=== PATIENT | male | born 1950 | race Caucasian/White ===

== ENCOUNTER 2018-01-17 11:25 | Inpatient (IN) ==
[2018-01-17] MEDS ORDERED: VANCOMYCIN INJ 1,250 MG in SODIUM CHLORIDE 0.9% 250 ML IV STA (12:49)
[2018-01-17 13:43] LABS: Basophils % 0.7 % (0.0-0.8); Eosinophils # 0.5 10*3/uL (0.0-0.87); Eosinophils % 12.1 % (0.00-10.9); Hematocrit 43.5 VOL% (42.0-52.0); Hemoglobin 14.5 GM/DL (14.0-18.0); Immature Granulocytes % 0.2 %; Immature Granulocytes Absolute 0.01 #; Lymphocytes # 1.3 10*3/uL (1.4-4.0); Lymphocytes % 29.7 % (21.2-54.2); Mean Corpuscular HGB Conc 33.3 GM/DL (32-36); Mean Corpuscular Hemoglobin 32 PG (27-34); Mean Corpuscular Volume 96.7 FL (87-102); Mean Platelet Volume 9.2 FL (9.6-12.0); Monocytes # 0.5 10*3/uL (0.11-0.8); Monocytes % 11.6 % (1.7-12.7); Neutrophils # 1.9 10*3/uL (1.4-7.4); Neutrophils % 45.7 % (38.7-73.9); Platelet Count 172 T/CUMM (130-400); Red Cell Distribution Width 15.8 % (9.3-17.3); White Blood Count 4.2 T/CUMM (4-12)
[2018-01-17] MEDS ORDERED: ONDANSETRON 4 MG/2 ML VIAL IV PRN (13:54)
[2018-01-17] MEDS ORDERED: diphenhydrAMINE CAP 25 MG CAPSULE PO PRN (13:54)
[2018-01-17] MEDS ORDERED: DOCUSATE SODIUM 100 MG CAPSULE PO PRN (13:54)
[2018-01-17] MEDS ORDERED: ACETAMINOPHEN 325 MG TABLET PO PRN (13:54)
[2018-01-17] MEDS ORDERED: hydrALAZINE 10 MG TABLET PO PRN (13:59)
[2018-01-17 14:02] LABS: Albumin 4.2 G/DL (3.4-5.0); Bilirubin,Total 0.7 MG/DL (0.2-1.0); Calcium 8.8 MG/DL (8.5-10.1); Osmolality,Calculated 277.5 MOS/KG (273-304); Potassium 3.7 MMOL/L (3.5-5.1); Total Protein 9.5 G/DL (6.4-8.3)
[2018-01-17 14:44] LABS: Eosinophils 17 % (0-10); Lymphocytes 20 % (20-55); Segmented Neutrophils 46 % (50-85); Total Cells Counted 100
[2018-01-17 14:47] LABS: Platelet Estimate Adequate
[2018-01-17] MEDS: CEFTAROLINE 600 MG in SODIUM CHLORIDE 0.9% 100 ML IV SCH (17:07)
[2018-01-17 17:08] LABS: Apearance,Urine Slightly Hazy (Clear); Bilirubin,Urine Negative (Negative); Blood, Urine Negative (Negative); Glucose,Urine (UA) Negative (Negative); Ketones,Urine Negative (Negative); Mucus,Urine Occasional /LPF (Occasional); Nitrite,Urine Negative (Negative); Protein,Urine Negative; RBC,Urine 10 /HPF (0-4); Squamous Epithelial Cell,Urine Occasional /HPF (0-10); Urine Color Yellow (Yellow); Urine Specific Gravity 1.016 (1.001-1.035); Urine Urobilinogen < 2.0 EU/DL (0.2-1.0); WBC,Urine 42 /HPF (0-6)
[2018-01-17] MEDS: PANTOPRAZOLE 40 MG TABLET PO SCH (17:08)
[2018-01-17] MEDS: OMEGA 3 ACID ETHYL ESTERS 1 GM CAPSULE PO SCH (17:08)
[2018-01-17] MEDS: ENOXAPARIN 40 MG/0.4 ML SYRINGE SUBCUT SCH (21:44)
[2018-01-18] MEDS: CEFTAROLINE 600 MG in SODIUM CHLORIDE 0.9% 100 ML IV SCH (05:55)
[2018-01-18 06:02] LABS: Eosinophils # 0.5 10*3/uL (0.0-0.87); Eosinophils % 13.2 % (0.00-10.9); Hematocrit 38.5 VOL% (42.0-52.0); Hemoglobin 12.6 GM/DL (14.0-18.0); Lymphocytes # 1.3 10*3/uL (1.4-4.0); Lymphocytes % 34.5 % (21.2-54.2); Mean Corpuscular HGB Conc 32.7 GM/DL (32-36); Mean Corpuscular Hemoglobin 31 PG (27-34); Mean Platelet Volume 9.5 FL (9.6-12.0); Monocytes # 0.6 10*3/uL (0.11-0.8); Neutrophils # 1.4 10*3/uL (1.4-7.4); Neutrophils % 36.3 % (38.7-73.9); Platelet Count 145 T/CUMM (130-400); Red Blood Count 4.01 MC/CUMM (3.8-5.5); Red Cell Distribution Width 15.5 % (9.3-17.3); White Blood Count 3.9 T/CUMM (4-12)
[2018-01-18 06:32] LABS: Calcium 8.3 MG/DL (8.5-10.1); Osmolality,Calculated 288.7 MOS/KG (273-304); Potassium 3.9 MMOL/L (3.5-5.1); Risk Ratio 4.79; Thyroid Stimulating Hormone 1.63 uIU/ml (0.358-3.74); VLDL CHOLESTEROL 35.6 MG/DL
[2018-01-18 06:40] LABS: Eosinophils 11 % (0-10); Hypochromasia 1+; Lymphocytes 29 % (20-55); Ovalocytes Slight; Platelet Estimate Normal; Segmented Neutrophils 52 % (50-85); Total Cells Counted 100
[2018-01-18] MEDS: PANTOPRAZOLE 40 MG TABLET PO SCH (09:18)
[2018-01-18] MEDS: OMEGA 3 ACID ETHYL ESTERS 1 GM CAPSULE PO SCH (09:18)
[2018-01-18] MEDS: ceFAZolin 1,000 MG in SYRINGE 1 EACH IV SCH (18:44)
[2018-01-18] MEDS ORDERED: ROSUVASTATIN 10 MG TABLET PO SCH (21:00)
[2018-01-18] MEDS: ENOXAPARIN 40 MG/0.4 ML SYRINGE SUBCUT SCH (21:16)
[2018-01-19] MEDS: ceFAZolin 1,000 MG in SYRINGE 1 EACH IV SCH ×2 (01:48→09:44)
[2018-01-19 06:15] LABS: Calcium 8.5 MG/DL (8.5-10.1); Osmolality,Calculated 286.8 MOS/KG (273-304); Potassium 3.8 MMOL/L (3.5-5.1)
[2018-01-19] MEDS: OMEGA 3 ACID ETHYL ESTERS 1 GM CAPSULE PO SCH (09:44)
[2018-01-19] MEDS: PANTOPRAZOLE 40 MG TABLET PO SCH (09:44)
[2018-01-19 11:40] VITALS: BP 160/87
== END 2018-01-19 14:55 | disposition home or self-care (01) | DRG 603 ==
LOC: N.ED 11:25 → SUATTDRO 13:54 → N.EDINP 13:54 → N.2W 15:34 → N.2E 17:36
PROVIDERS: ADMIT Internal Medicine; ATTEND Internal Medicine

== ENCOUNTER 2018-09-17 21:02 | Inpatient (IN) ==
[2018-09-17 22:58] LABS: Basophils # 0.1 10*3/uL (0.0-0.2); Basophils % 0.4 % (0.0-0.8); Hemoglobin 14.6 GM/DL (14.0-18.0); Immature Granulocytes % 3.4 %; Immature Granulocytes Absolute 0.76 #; Lymphocytes # 0.6 10*3/uL (1.4-4.0); Lymphocytes % 2.6 % (21.2-54.2); Mean Corpuscular HGB Conc 33.2 GM/DL (32-36); Mean Corpuscular Hemoglobin 32 PG (27-34); Mean Corpuscular Volume 96.9 FL (87-102); Mean Platelet Volume 9.5 FL (9.6-12.0); Monocytes # 0.7 10*3/uL (0.11-0.8); Monocytes % 2.9 % (1.7-12.7); Neutrophils # 20.2 10*3/uL (1.4-7.4); Neutrophils % 90.7 % (38.7-73.9); Platelet Count 147 T/CUMM (130-400); Red Blood Count 4.54 MC/CUMM (3.8-5.5); Red Cell Distribution Width 14.6 % (9.3-17.3); White Blood Count 22.3 T/CUMM (4-12)
[2018-09-17 23:15] LABS: Albumin 3.6 G/DL (3.4-5.0); Bilirubin,Total 1.1 MG/DL (0.2-1.0); Calcium 8.4 MG/DL (8.5-10.1); Potassium 4.3 MMOL/L (3.5-5.1); Total Protein 8.1 G/DL (6.4-8.3)
[2018-09-17 23:49] LABS: Apearance,Urine Slightly Hazy (Clear); Bacteria,Urine Occasional /HPF (Few); Bilirubin,Urine Negative (Negative); Blood, Urine Negative (Negative); Glucose,Urine (UA) Negative (Negative); Hyaline Casts,Urine 9 /LPF (0-3); Ketones,Urine Negative (Negative); Mucus,Urine Few /LPF (Occasional); Nitrite,Urine Negative (Negative); Protein,Urine Negative; RBC,Urine 9 /HPF (0-4); Renal Epithelial Cells,Urine Occasional /HPF (<1); Squamous Epithelial Cell,Urine Occasional /HPF (0-10); Transitional Epi Cells,Urine Occasional /HPF (<1); Urine Color Yellow (Yellow); Urine Specific Gravity 1.015 (1.001-1.035); Urine Urobilinogen < 2.0 EU/DL (0.2-1.0); WBC,Urine 145 /HPF (0-6)
[2018-09-18] MEDS ORDERED: cefTRIAXone 1,000 MG in SODIUM CHLORIDE 0.9% 100 ML IV STA (00:11)
[2018-09-18] MEDS ORDERED: SODIUM CHLORIDE 0.9% 1,000 ML IV STA (00:14)
[2018-09-18] MEDS ORDERED: ACETAMINOPHEN 325 MG TABLET PO PRN ×2 (01:47→02:25)
[2018-09-18] MEDS ORDERED: SODIUM CHLORIDE 0.9% 3,900 ML IV ONE (01:47)
[2018-09-18] MEDS ORDERED: ONDANSETRON 4 MG/2 ML VIAL IV PRN (01:47)
[2018-09-18 01:51] LABS: Band Neutrophils 10 % (0-10); Lymphocytes 2 % (20-55); Metamyelocytes 2 %; Platelet Estimate Adequate; Segmented Neutrophils 84 % (50-85); Total Cells Counted 100
[2018-09-18] MEDS: MEROPENEM 1,000 MG in SODIUM CHLORIDE 0.9% 100 ML IV SCH ×2 (02:15→14:43)
[2018-09-18] MEDS: ENOXAPARIN 40 MG/0.4 ML SYRINGE SUBCUT SCH (02:16)
[2018-09-18 07:15] LABS: Basophils % 0.2 % (0.0-0.8); Hematocrit 37.3 VOL% (42.0-52.0); Hemoglobin 12.7 GM/DL (14.0-18.0); Immature Granulocytes % 3.1 %; Immature Granulocytes Absolute 0.55 #; Lymphocytes # 0.8 10*3/uL (1.4-4.0); Lymphocytes % 4.3 % (21.2-54.2); Mean Corpuscular Hemoglobin 33 PG (27-34); Mean Corpuscular Volume 95.6 FL (87-102); Mean Platelet Volume 9.5 FL (9.6-12.0); Monocytes # 0.6 10*3/uL (0.11-0.8); Monocytes % 3.1 % (1.7-12.7); Neutrophils % 89.3 % (38.7-73.9); Platelet Count 114 T/CUMM (130-400); Red Cell Distribution Width 14.6 % (9.3-17.3); White Blood Count 17.9 T/CUMM (4-12)
[2018-09-18 07:33] LABS: Calcium 7.3 MG/DL (8.5-10.1); Osmolality,Calculated 282.7 MOS/KG (273-304)
[2018-09-18 07:58] LABS: Band Neutrophils 9 % (0-10); Eosinophils 1 % (0-10); Hypochromasia 1+; Lymphocytes 6 % (20-55); Platelet Estimate Decreased; Segmented Neutrophils 84 % (50-85); Total Cells Counted 100
[2018-09-18] MEDS: PANTOPRAZOLE 40 MG TABLET PO SCH (13:01)
[2018-09-18] MEDS: ASPIRIN EC 325 MG TABLET PO SCH (18:06)
[2018-09-19] MEDS: ENOXAPARIN 40 MG/0.4 ML SYRINGE SUBCUT SCH (01:09)
[2018-09-19] MEDS: MEROPENEM 1,000 MG in SODIUM CHLORIDE 0.9% 100 ML IV SCH (01:10)
[2018-09-19 05:02] LABS: Basophils % 0.2 % (0.0-0.8); Eosinophils % 0.3 % (0.00-10.9); Hematocrit 36.2 VOL% (42.0-52.0); Hemoglobin 12.1 GM/DL (14.0-18.0); Immature Granulocytes % 1.4 %; Immature Granulocytes Absolute 0.16 #; Lymphocytes # 1.1 10*3/uL (1.4-4.0); Lymphocytes % 9.5 % (21.2-54.2); Mean Corpuscular HGB Conc 33.4 GM/DL (32-36); Mean Corpuscular Hemoglobin 32 PG (27-34); Mean Corpuscular Volume 96.5 FL (87-102); Mean Platelet Volume 9.9 FL (9.6-12.0); Monocytes # 0.6 10*3/uL (0.11-0.8); Monocytes % 5.2 % (1.7-12.7); Neutrophils # 9.7 10*3/uL (1.4-7.4); Neutrophils % 83.4 % (38.7-73.9); Platelet Count 109 T/CUMM (130-400); Red Blood Count 3.75 MC/CUMM (3.8-5.5); Red Cell Distribution Width 14.6 % (9.3-17.3); White Blood Count 11.6 T/CUMM (4-12)
[2018-09-19 05:27] LABS: Calcium 7.9 MG/DL (8.5-10.1); Osmolality,Calculated 282.4 MOS/KG (273-304); Potassium 3.9 MMOL/L (3.5-5.1)
[2018-09-19 06:00] LABS: Risk Ratio 5.06; VLDL CHOLESTEROL 31.8 MG/DL
[2018-09-19] MEDS: PANTOPRAZOLE 40 MG TABLET PO SCH (08:36)
[2018-09-19] MEDS: ASPIRIN EC 325 MG TABLET PO SCH (08:37)
[2018-09-19] MEDS: cefTRIAXone 2,000 MG in SYRINGE 1 EACH IV SCH (13:29)
[2018-09-20] MEDS: ENOXAPARIN 40 MG/0.4 ML SYRINGE SUBCUT SCH (01:11)
[2018-09-20 05:17] LABS: Basophils % 0.3 % (0.0-0.8); Eosinophils # 0.1 10*3/uL (0.0-0.87); Eosinophils % 1.3 % (0.00-10.9); Hematocrit 35.1 VOL% (42.0-52.0); Hemoglobin 11.8 GM/DL (14.0-18.0); Immature Granulocytes % 0.8 %; Immature Granulocytes Absolute 0.06 #; Lymphocytes # 1.4 10*3/uL (1.4-4.0); Mean Corpuscular HGB Conc 33.6 GM/DL (32-36); Mean Corpuscular Hemoglobin 32 PG (27-34); Mean Corpuscular Volume 95.6 FL (87-102); Mean Platelet Volume 10.6 FL (9.6-12.0); Monocytes # 0.4 10*3/uL (0.11-0.8); Monocytes % 6.1 % (1.7-12.7); Neutrophils # 5.1 10*3/uL (1.4-7.4); Neutrophils % 72.5 % (38.7-73.9); Platelet Count 119 T/CUMM (130-400); Red Blood Count 3.67 MC/CUMM (3.8-5.5); Red Cell Distribution Width 14.6 % (9.3-17.3); White Blood Count 7.1 T/CUMM (4-12)
[2018-09-20 05:34] LABS: Calcium 8.3 MG/DL (8.5-10.1); Osmolality,Calculated 284.3 MOS/KG (273-304); Potassium 4.1 MMOL/L (3.5-5.1)
[2018-09-20] MEDS: PANTOPRAZOLE 40 MG TABLET PO SCH (08:55)
[2018-09-20] MEDS: ASPIRIN EC 325 MG TABLET PO SCH (08:56)
[2018-09-20] MEDS: cefTRIAXone 2,000 MG in SYRINGE 1 EACH IV SCH (10:25)
[2018-09-20] MEDS: SODIUM CHLORIDE 0.45% 1,000 ML IV SCH (11:19)
[2018-09-20] MEDS: ACETYLCYSTEINE 600 MG CAPSULE PO SCH ×2 (11:19→21:25)
[2018-09-21] MEDS: SODIUM CHLORIDE 0.45% 1,000 ML IV SCH (00:07)
[2018-09-21] MEDS: ENOXAPARIN 40 MG/0.4 ML SYRINGE SUBCUT SCH (01:10)
[2018-09-21 05:18] LABS: Basophils % 0.5 % (0.0-0.8); Eosinophils # 0.1 10*3/uL (0.0-0.87); Hematocrit 35.6 VOL% (42.0-52.0); Hemoglobin 12.1 GM/DL (14.0-18.0); Immature Granulocytes % 1.1 %; Immature Granulocytes Absolute 0.07 #; Lymphocytes # 1.7 10*3/uL (1.4-4.0); Lymphocytes % 27.3 % (21.2-54.2); Mean Corpuscular Hemoglobin 32 PG (27-34); Mean Corpuscular Volume 94.9 FL (87-102); Mean Platelet Volume 10.2 FL (9.6-12.0); Monocytes # 0.5 10*3/uL (0.11-0.8); Monocytes % 8.2 % (1.7-12.7); Neutrophils # 3.9 10*3/uL (1.4-7.4); Neutrophils % 60.9 % (38.7-73.9); Platelet Count 145 T/CUMM (130-400); Red Blood Count 3.75 MC/CUMM (3.8-5.5); Red Cell Distribution Width 14.5 % (9.3-17.3); White Blood Count 6.4 T/CUMM (4-12)
[2018-09-21 05:41] LABS: Calcium 8.3 MG/DL (8.5-10.1); Osmolality,Calculated 284.1 MOS/KG (273-304); Potassium 3.8 MMOL/L (3.5-5.1)
[2018-09-21] MEDS: PANTOPRAZOLE 40 MG TABLET PO SCH (08:48)
[2018-09-21] MEDS: ASPIRIN EC 325 MG TABLET PO SCH (08:48)
[2018-09-21] MEDS: ACETYLCYSTEINE 600 MG CAPSULE PO SCH (08:48)
[2018-09-21 12:13] VITALS: BP 165/108
[2018-09-21] MEDS: cefTRIAXone 2,000 MG in SYRINGE 1 EACH IV SCH (12:16)
== END 2018-09-21 13:15 | disposition home or self-care (01) | DRG 871 ==
LOC: EDBD → EDUNIT# → N.ED 21:02 → N.EDINP 09-18 01:47 → N.5E 09-18 14:00
PROVIDERS: ADMIT Hospitalist; ATTEND Hospitalist

== ENCOUNTER 2020-04-24 13:13 | Inpatient (IN) ==
[2020-04-24 15:07] LABS: Basophils % 0.3 % (0.0-0.8); Eosinophils % 0.4 % (0.00-10.9); Hematocrit 45.4 VOL% (42.0-52.0); Immature Granulocytes % 0.5 %; Immature Granulocytes Absolute 0.05 #; Lymphocytes # 1.5 10*3/uL (1.4-4.0); Lymphocytes % 15.2 % (21.2-54.2); Mean Corpuscular HGB Conc 35.2 GM/DL (32-36); Mean Corpuscular Volume 93.4 FL (87-102); Mean Platelet Volume 10.3 FL (9.6-12.0); Monocytes % 7.8 % (1.7-12.7); Neutrophils % 75.8 % (38.7-73.9); Platelet Count 158 T/CUMM (130-400); Red Blood Count 4.86 MC/CUMM (3.8-5.5); Red Cell Distribution Width 13.2 % (9.3-17.3)
[2020-04-24 15:25] LABS: INR 1.2; PT Patient Result 13.2 SECS (9.8-11.9); Partial Thromboplastin Time 27.9 SECS (23.9-33.8)
[2020-04-24 15:43] LABS: Albumin 3.6 G/DL (3.4-5.0); Bilirubin,Total 0.9 MG/DL (0.2-1.0); Calcium 9.2 MG/DL (8.5-10.1); Osmolality,Calculated 284.7 MOS/KG (273-304); Total Protein 8.1 G/DL (6.4-8.3)
[2020-04-24 16:16] LABS: Bilirubin,Urine Negative (Negative); Blood, Urine Negative (Negative); Calcium Oxalate Crystals,Urine Occasional /HPF (Few); Glucose,Urine (UA) Negative (Negative); Hyaline Casts,Urine 34 /LPF (0-3); Ketones,Urine Negative (Negative); Mucus,Urine Occasional /LPF (Occasional); Nitrite,Urine Negative (Negative); Protein,Urine Negative; RBC,Urine 9 /HPF (0-4); Squamous Epithelial Cell,Urine Occasional /HPF (0-10); Urine Appearance Slightly Hazy (Clear); Urine Color Amber (Yellow); Urine Specific Gravity 1.017 (1.001-1.035); WBC,Urine 68 /HPF (0-6)
[2020-04-24] MEDS ORDERED: DOCUSATE SODIUM 100 MG CAPSULE PO PRN (18:12)
[2020-04-24] MEDS ORDERED: ZALEPLON 5 MG CAPSULE PO PRN (18:12)
[2020-04-24] MEDS ORDERED: DEXTROSE 50% 25 GM/50 ML VIAL IV PRN (18:12)
[2020-04-24] MEDS ORDERED: GLUCAGON 1 MG VIAL IM PRN (18:12)
[2020-04-24] MEDS ORDERED: MORPHINE 4 MG/1 ML VIAL IV PRN (18:12)
[2020-04-24] MEDS ORDERED: guaiFENesin/DM ER 600-30 MG TABLET PO PRN (18:12)
[2020-04-24] MEDS ORDERED: PROMETHAZINE 25 MG TABLET PO PRN (18:12)
[2020-04-24] MEDS ORDERED: NICOTINE 21 MG/24 HR PATCH TRANSDERM PRN (18:12)
[2020-04-24] MEDS ORDERED: ACETAMINOPHEN 325 MG TABLET PO PRN (18:12)
[2020-04-24] MEDS ORDERED: diphenhydrAMINE CAP 25 MG CAPSULE PO PRN (18:12)
[2020-04-24] MEDS ORDERED: hydrALAZINE 20 MG/1 ML VIAL IV PRN (18:12)
[2020-04-24] MEDS ORDERED: ASPIRIN 325 MG TABLET PO ONE (18:18)
[2020-04-24] MEDS ORDERED: ENOXAPARIN 120 MG/0.8 ML SYRINGE SUBCUT SCH (18:30)
[2020-04-24] MEDS: ALBUTEROL 2.5 MG/3 ML NEB RESP TX SCH (19:34)
[2020-04-24] MEDS: cefTRIAXone 1,000 MG in SYRINGE 1 EACH IV SCH (19:45)
[2020-04-25] MEDS: ALBUTEROL 2.5 MG/3 ML NEB RESP TX SCH ×4 (01:30→18:47)
[2020-04-25 05:15] LABS: Basophils # 0.1 10*3/uL (0.0-0.2); Basophils % 0.5 % (0.0-0.8); Eosinophils # 0.2 10*3/uL (0.0-0.87); Eosinophils % 2.1 % (0.00-10.9); Hematocrit 41.7 VOL% (42.0-52.0); Hemoglobin 14.4 GM/DL (14.0-18.0); Immature Granulocytes % 0.5 %; Immature Granulocytes Absolute 0.05 #; Lymphocytes # 2.3 10*3/uL (1.4-4.0); Lymphocytes % 25.2 % (21.2-54.2); Mean Corpuscular HGB Conc 34.5 GM/DL (32-36); Mean Corpuscular Volume 95.4 FL (87-102); Mean Platelet Volume 10.7 FL (9.6-12.0); Monocytes % 8.3 % (1.7-12.7); Neutrophils % 63.4 % (38.7-73.9); Platelet Count 159 T/CUMM (130-400); Red Blood Count 4.37 MC/CUMM (3.8-5.5); Red Cell Distribution Width 13.2 % (9.3-17.3); White Blood Count 9.2 T/CUMM (4-12)
[2020-04-25 05:34] LABS: Osmolality,Calculated 287.7 MOS/KG (273-304)
[2020-04-25 10:11] LABS: ABG Base Excess -3.4 MMOL/L (-2.5-2.5); ABG HCO3 18.9 MMOL/L (20-26); ABG Oxygen Saturation 97.5 % (95-100); ABG PCO2 27.6 MM HG (35-48); ABG PH 7.454 (7.35-7.45); ABG PO2 97.8 MM HG (80-95); ABG TCO2 19.8 MMOL/L (23-27)
[2020-04-25] MEDS: ASPIRIN 325 MG TABLET PO SCH (10:15)
[2020-04-25] MEDS: PANTOPRAZOLE 40 MG TABLET PO SCH (10:15)
[2020-04-25] MEDS: FUROSEMIDE 40 MG/4 ML VIAL IV SCH ×2 (11:02→18:44)
[2020-04-25 14:46] LABS: Basophils # 0.1 10*3/uL (0.0-0.2); Basophils % 0.6 % (0.0-0.8); Eosinophils # 0.2 10*3/uL (0.0-0.87); Eosinophils % 2.2 % (0.00-10.9); Hematocrit 41.5 VOL% (42.0-52.0); Hemoglobin 14.5 GM/DL (14.0-18.0); Immature Granulocytes % 0.3 %; Immature Granulocytes Absolute 0.02 #; Lymphocytes # 1.9 10*3/uL (1.4-4.0); Lymphocytes % 23.8 % (21.2-54.2); Mean Corpuscular HGB Conc 34.9 GM/DL (32-36); Mean Platelet Volume 10.4 FL (9.6-12.0); Monocytes % 8.2 % (1.7-12.7); Neutrophils % 64.9 % (38.7-73.9); Platelet Count 162 T/CUMM (130-400); Red Blood Count 4.37 MC/CUMM (3.8-5.5); Red Cell Distribution Width 13.2 % (9.3-17.3); White Blood Count 7.8 T/CUMM (4-12)
[2020-04-25] MEDS: HEPARIN DRIP 25,000 UNITS/500 ML PREMIX IV SCH (14:55)
[2020-04-25 14:57] LABS: INR 1.2; PT Patient Result 12.9 SECS (9.8-11.9)
[2020-04-25] MEDS ORDERED: ENOXAPARIN 120 MG/0.8 ML SYRINGE SUBCUT SCH (19:00)
[2020-04-25] MEDS: cefTRIAXone 1,000 MG in SYRINGE 1 EACH IV SCH (20:02)
[2020-04-25] MEDS: ROSUVASTATIN 20 MG TABLET PO SCH (21:43)
[2020-04-26] MEDS: ALBUTEROL 2.5 MG/3 ML NEB RESP TX SCH ×4 (01:12→19:19)
[2020-04-26] MEDS: HEPARIN DRIP 25,000 UNITS/500 ML PREMIX IV SCH ×2 (04:55→17:54)
[2020-04-26] MEDS: ASPIRIN 325 MG TABLET PO SCH (09:14)
[2020-04-26] MEDS: PANTOPRAZOLE 40 MG TABLET PO SCH (09:14)
[2020-04-26] MEDS: FUROSEMIDE 40 MG/4 ML VIAL IV SCH ×2 (09:57→16:06)
[2020-04-26 10:06] LABS: Basophils # 0.1 10*3/uL (0.0-0.2); Basophils % 0.7 % (0.0-0.8); Eosinophils # 0.3 10*3/uL (0.0-0.87); Eosinophils % 3.3 % (0.00-10.9); Hematocrit 40.7 VOL% (42.0-52.0); Immature Granulocytes % 0.5 %; Immature Granulocytes Absolute 0.04 #; Mean Corpuscular HGB Conc 34.4 GM/DL (32-36); Mean Corpuscular Volume 96.2 FL (87-102); Mean Platelet Volume 11.4 FL (9.6-12.0); Neutrophils % 62.5 % (38.7-73.9); Platelet Count 171 T/CUMM (130-400); Red Blood Count 4.23 MC/CUMM (3.8-5.5); Red Cell Distribution Width 13.6 % (9.3-17.3); White Blood Count 8.1 T/CUMM (4-12)
[2020-04-26 10:26] LABS: Calcium 8.3 MG/DL (8.5-10.1); Osmolality,Calculated 293.3 MOS/KG (273-304)
[2020-04-26] MEDS: cefTRIAXone 1,000 MG in SYRINGE 1 EACH IV SCH ×2 (16:53→17:59)
[2020-04-26] MEDS: ROSUVASTATIN 20 MG TABLET PO SCH (22:07)
[2020-04-27] MEDS: ALBUTEROL 2.5 MG/3 ML NEB RESP TX SCH ×4 (01:10→19:16)
[2020-04-27 05:33] LABS: Basophils # 0.1 10*3/uL (0.0-0.2); Basophils % 0.7 % (0.0-0.8); Eosinophils # 0.3 10*3/uL (0.0-0.87); Eosinophils % 3.6 % (0.00-10.9); Hemoglobin 13.7 GM/DL (14.0-18.0); Immature Granulocytes % 0.6 %; Immature Granulocytes Absolute 0.04 #; Lymphocytes # 2.1 10*3/uL (1.4-4.0); Lymphocytes % 29.1 % (21.2-54.2); Mean Corpuscular HGB Conc 34.3 GM/DL (32-36); Mean Corpuscular Volume 95.5 FL (87-102); Mean Platelet Volume 10.4 FL (9.6-12.0); Platelet Count 183 T/CUMM (130-400); Red Blood Count 4.19 MC/CUMM (3.8-5.5); Red Cell Distribution Width 13.2 % (9.3-17.3); White Blood Count 7.2 T/CUMM (4-12)
[2020-04-27 06:04] LABS: Calcium 8.9 MG/DL (8.5-10.1); Osmolality,Calculated 288.5 MOS/KG (273-304)
[2020-04-27] MEDS: HEPARIN DRIP 25,000 UNITS/500 ML PREMIX IV SCH ×3 (06:54→22:13)
[2020-04-27] MEDS ORDERED: RIVAROXABAN 15 MG TABLET PO SCH (08:00)
[2020-04-27] MEDS: SODIUM CHLORIDE 0.9% 1,000 ML IV SCH (08:53)
[2020-04-27] MEDS: FUROSEMIDE 40 MG/4 ML VIAL IV SCH ×2 (08:54→17:05)
[2020-04-27] MEDS: ASPIRIN 325 MG TABLET PO SCH (08:54)
[2020-04-27] MEDS: PANTOPRAZOLE 40 MG TABLET PO SCH (08:54)
[2020-04-27] MEDS ORDERED: DIAZEPAM 5 MG TABLET PO ONE (10:11)
[2020-04-27] MEDS: SODIUM CHLORIDE 0.45% 1,000 ML IV SCH (11:31)
[2020-04-27] MEDS: cefTRIAXone 1,000 MG in SYRINGE 1 EACH IV SCH (18:28)
[2020-04-27] MEDS: ROSUVASTATIN 20 MG TABLET PO SCH (21:19)
[2020-04-28] MEDS: SODIUM CHLORIDE 0.9% 1,000 ML IV SCH (03:53)
[2020-04-28] MEDS: ALBUTEROL 2.5 MG/3 ML NEB RESP TX SCH ×2 (06:59)
[2020-04-28 08:18] LABS: Basophils % 0.6 % (0.0-0.8); Eosinophils # 0.3 10*3/uL (0.0-0.87); Hematocrit 39.9 VOL% (42.0-52.0); Immature Granulocytes % 0.6 %; Immature Granulocytes Absolute 0.04 #; Lymphocytes # 1.4 10*3/uL (1.4-4.0); Lymphocytes % 22.4 % (21.2-54.2); Mean Corpuscular HGB Conc 35.1 GM/DL (32-36); Mean Corpuscular Volume 93.2 FL (87-102); Mean Platelet Volume 9.9 FL (9.6-12.0); Monocytes % 7.2 % (1.7-12.7); Neutrophils % 64.2 % (38.7-73.9); Platelet Count 190 T/CUMM (130-400); Red Blood Count 4.28 MC/CUMM (3.8-5.5); Red Cell Distribution Width 13.4 % (9.3-17.3); White Blood Count 6.3 T/CUMM (4-12)
[2020-04-28 08:32] LABS: Calcium 9.4 MG/DL (8.5-10.1); Osmolality,Calculated 282.8 MOS/KG (273-304)
[2020-04-28] MEDS: ASPIRIN 325 MG TABLET PO SCH (09:02)
[2020-04-28] MEDS: PANTOPRAZOLE 40 MG TABLET PO SCH (09:02)
[2020-04-28] MEDS: HEPARIN DRIP 25,000 UNITS/500 ML PREMIX IV SCH (09:04)
[2020-04-28] MEDS: FUROSEMIDE 40 MG/4 ML VIAL IV SCH (09:06)
[2020-04-28] MEDS: SODIUM CHLORIDE 0.45% 1,000 ML IV SCH (09:34)
[2020-04-28 12:03] VITALS: BP 140/80
== END 2020-04-28 14:09 | disposition home health service (06) | DRG 176 ==
LOC: EDUNIT# → EDBD → N.ED 13:13 → SUATTDRO 18:12 → N.EDINP 18:12 → N.TELES 19:39
PROVIDERS: ADMIT Emergency Medicine; ATTEND Internal Medicine

== ENCOUNTER 2020-09-08 15:49 | Inpatient (IN) ==
[2020-09-08 17:10] LABS: Basophils % 0.2 % (0.0-0.8); Eosinophils % 0.1 % (0.00-10.9); Hematocrit 42.2 VOL% (42.0-52.0); Hemoglobin 14.1 GM/DL (14.0-18.0); Immature Granulocytes % 0.4 %; Immature Granulocytes Absolute 0.04 #; Lymphocytes # 0.9 10*3/uL (1.4-4.0); Mean Corpuscular HGB Conc 33.4 GM/DL (32-36); Mean Platelet Volume 9.7 FL (9.6-12.0); Monocytes % 9.3 % (1.7-12.7); Platelet Count 180 T/CUMM (130-400); Red Blood Count 4.44 MC/CUMM (3.8-5.5); Red Cell Distribution Width 13.3 % (9.3-17.3); White Blood Count 9.7 T/CUMM (4-12)
[2020-09-08 17:21] LABS: Calcium 9.3 MG/DL (8.5-10.1)
[2020-09-08] MEDS: HEPARIN DRIP 25,000 UNITS/500 ML PREMIX IV SCH (17:40)
[2020-09-08 17:42] LABS: INR 1.1; PT Patient Result 12.2 SECS (9.8-11.9); Partial Thromboplastin Time 30.6 SECS (23.9-33.8)
[2020-09-08] MEDS ORDERED: ONDANSETRON 4 MG/2 ML VIAL IV PRN (17:45)
[2020-09-08] MEDS ORDERED: GLUCAGON 1 MG VIAL IM PRN (17:45)
[2020-09-08] MEDS ORDERED: DEXTROSE 50% 25 GM/50 ML VIAL IV PRN (17:45)
[2020-09-09 00:33] LABS: Basophils % 0.4 % (0.0-0.8); Eosinophils % 0.4 % (0.00-10.9); Hematocrit 37.4 VOL% (42.0-52.0); Hemoglobin 12.7 GM/DL (14.0-18.0); Immature Granulocytes % 0.3 %; Immature Granulocytes Absolute 0.02 #; Lymphocytes # 1.9 10*3/uL (1.4-4.0); Lymphocytes % 25.2 % (21.2-54.2); Mean Corpuscular Volume 94.2 FL (87-102); Mean Platelet Volume 9.4 FL (9.6-12.0); Monocytes % 12.2 % (1.7-12.7); Neutrophils % 61.5 % (38.7-73.9); Platelet Count 147 T/CUMM (130-400); Red Blood Count 3.97 MC/CUMM (3.8-5.5); Red Cell Distribution Width 13.3 % (9.3-17.3); White Blood Count 7.4 T/CUMM (4-12)
[2020-09-09 01:05] LABS: Calcium 8.3 MG/DL (8.5-10.1); Osmolality,Calculated 280.7 MOS/KG (273-304); Potassium 3.5 MMOL/L (3.5-5.1)
[2020-09-09 02:21] LABS: INR 1.2; PT Patient Result 12.3 SECS (9.8-11.9)
[2020-09-09 02:22] LABS: Partial Thromboplastin Time 95.9 SECS (23.9-33.8)
[2020-09-09] MEDS: HEPARIN DRIP 25,000 UNITS/500 ML PREMIX IV SCH ×2 (05:53→19:08)
[2020-09-09 06:49] LABS: INR 1.2; PT Patient Result 12.5 SECS (9.8-11.9)
[2020-09-09 07:01] LABS: Partial Thromboplastin Time 85.4 SECS (23.9-33.8)
[2020-09-09] MEDS: CHOLECALCIFEROL 1,000 UNIT TABLET PO SCH (09:00)
[2020-09-09] MEDS: ROSUVASTATIN 20 MG TABLET PO SCH (09:00)
[2020-09-09 12:38] LABS: INR 1.2; PT Patient Result 12.3 SECS (9.8-11.9)
[2020-09-09 12:42] LABS: Partial Thromboplastin Time 99.1 SECS (23.9-33.8)
[2020-09-09] MEDS: ACETAMINOPHEN 325 MG TABLET PO PRN ×2 (15:55→23:49)
[2020-09-09 19:46] LABS: INR 1.1; PT Patient Result 11.9 SECS (9.8-11.9)
[2020-09-09 19:47] LABS: Partial Thromboplastin Time 78.8 SECS (23.9-33.8)
[2020-09-09] MEDS: APIXABAN 5 MG TABLET PO SCH (21:01)
[2020-09-10 05:31] LABS: Basophils % 0.3 % (0.0-0.8); Eosinophils # 0.1 10*3/uL (0.0-0.87); Eosinophils % 0.8 % (0.00-10.9); Hemoglobin 12.6 GM/DL (14.0-18.0); Immature Granulocytes % 0.3 %; Immature Granulocytes Absolute 0.02 #; Lymphocytes # 1.3 10*3/uL (1.4-4.0); Lymphocytes % 19.8 % (21.2-54.2); Mean Corpuscular HGB Conc 34.1 GM/DL (32-36); Mean Corpuscular Volume 94.1 FL (87-102); Monocytes % 9.4 % (1.7-12.7); Neutrophils % 69.4 % (38.7-73.9); Platelet Count 178 T/CUMM (130-400); Red Blood Count 3.93 MC/CUMM (3.8-5.5); Red Cell Distribution Width 13.2 % (9.3-17.3); White Blood Count 6.5 T/CUMM (4-12)
[2020-09-10 05:56] LABS: Calcium 8.9 MG/DL (8.5-10.1); Osmolality,Calculated 278.7 MOS/KG (273-304); Potassium 3.5 MMOL/L (3.5-5.1)
[2020-09-10] MEDS: ROSUVASTATIN 20 MG TABLET PO SCH (08:33)
[2020-09-10] MEDS: CHOLECALCIFEROL 1,000 UNIT TABLET PO SCH (08:33)
[2020-09-10] MEDS: APIXABAN 5 MG TABLET PO SCH (08:33)
[2020-09-10] MEDS: ACETAMINOPHEN 325 MG TABLET PO PRN (08:37)
[2020-09-10] MEDS ORDERED: ASPIRIN CHEW 81 MG TABLET PO SCH (09:00)
[2020-09-10 15:56] VITALS: BP 145/85
== END 2020-09-10 17:36 | disposition home or self-care (01) | DRG 300 ==
LOC: N.EDINP 15:49 → N.ED 15:49 → N.3E 18:19
PROVIDERS: ADMIT Hospitalist; ATTEND Hospitalist